=== PATIENT | male | born 1940 | race Caucasian/White ===

== ENCOUNTER 2017-08-13 08:27 | Emergency (ER) | payer MEDICARE ==
[~2017-08-13] VITALS: Ht 181.6 cm; Wt 109.3 kg
--- NOTE | 2017-08-13 09:05 | Emergency Room Report ---
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 N Clinical Suspician of Infection? N Mental Status: 1 - Regular (Normal Baseline) Sepsis Risk:Low Sepsis Risk Have you (or family members/close friends) recently traveled outside the [place]? N If Yes, where/when: Have you had exposure to infectious disease within the past month? TB? Other? Specify: Comment Patient fell while walking his dog 2 days ago and landed on his back. He complains of pain in his upper lumbar area of his lower back. Denies bowel or bladder symptoms since the injury, denies numbness or weakness of the legs. He had pain going around his ribs on both sides yesterday, but this is improved today. ALLERGIES Coded Allergies: No Known Allergies (08/13/17) History Medical History General More? No Immunization Hx Ped.Immunizations UTD Yes DT/Tetanus 5-10 Years Ago Surgical Hx Previous Surgery?Y ELBOWS BILAT Social History Smoking Hx Smoker: Never Smoker Tobacco: No Type N/A Are you/the child exposed to second-hand smoke: No Alcohol Alcohol: Yes Review of Systems All Other Systems Reviewed and Negative Gastrointestinal denies vomiting Musculoskeletal back pain, denies neck pain Psychiatric/Neurological denies headache, denies numbness, denies weakness Physical Exam Vital Signs Vital Signs Date Time Temp Pulse Resp B/P Pulse O2 O2 Flow FiO2 Ox Delivery Rate 08/13 0931 18 08/13 929 84 18 138/85 99 08/13 0913 88 18 142/77 94 08/13 0834 98.1 104 18 135/90 94 General Appearance no apparent distress, sitting in a wheelchair Eye Exam - bilateral eye normal exam, bilateral eye PERRL, bilateral eye EOMI Ear, Nose, Throat hearing grossly normal, normal ENT inspection Neck normal inspection, non-tender, supple, full range of motion Respiratory Status Yes: trachea midline, chest symmetrical, non tender chest. No: respiratory distress. Lung Sounds bilateral: normal breath sounds, lungs clear. Cardiovascular normal exam, regular rate/rhythm, no peripheral edema, no gallop, no JVD, no murmur, no rub, normal peripheral pulses Peripheral Pulses Pulses normal Yes Gastrointestinal normal bowel sounds, normal exam, non tender, soft, no organomegaly Back vertebral tenderness (upper lumbar) Extremities non-tender, normal range of motion, normal inspection Neurologic alert, normal exam, no motor/sensory deficits, oriented x 3 Mental status normal mood/affect Skin intact, normal color, warm/dry Medical Decision Making LABS/Meds/Orders Pt receiving controlled substance in ED? Yes Reece was queried for this patient? No Reason not queried - emergent pt cond=no time Results/Orders Current Medication Orders Sig/Meghana Start time Last Medication Dose Route Stop Time Status Admin Hydrocodone Bitart/ 1 TAB ONCE ONE 08/13 930 DC 08/13 Acetaminophen PO 08/13 Hydrocodone Bitart/ 0 .STK-MED ONE 08/13 927 DC Acetaminophen PO XRAY/CT/US XRAY/CT/US XRAY chest, pelvis, L-spine Comment X-rays interpreted by Jl Villalba M.D.: Lumbar spine: Degenerative changes with spurs. Some loss of height of L2 and L3 vertebral body since CT scan of abdomen and pelvis in 2014. Pelvis: Degenerative changes, no fracture seen. Chest: Blunting of the posterior costophrenic angles on lateral view. No rib fractures or pneumothorax seen. Departure Departure Disposition DC Home or Self Care(routine) Clinical Impression Primary Impression: Compression fracture of L3 lumbar vertebra Secondary Impressions: Compression fracture of L2 lumbar vertebra Qualifiers: Encounter type: initial encounter Fracture type: closed Qualified Code: S32.020A - Wedge compression fracture of second lumbar vertebra, initial encounter for closed fracture Condition STABLE Referrals José Luis Mcclellan MD (PCP) Issa Rodriguez MD call for appointment Patient Instructions DI for Vertebral Fracture Additional Instructions Follow-up with orthopedics. [place] for pain. Additional instructions for BACK PAIN: See your physician as soon as possible for further evaluation. Return immediately if back pain becomes intolerable, or if numbness or weakness of your legs, loss of control of your bowels or bladder. Prescriptions Current Visit Scripts HYDROCODONE/ACETAMINOPHEN ([place] 5-325 Tablet) 1 TAB PO Q6HP PRN pain #20 TAB ED Critical Care Critical Care No at 1520 Critical Care No
[2017-08-13] MEDS ORDERED: NORCO 325 MG-51 TAB PO (09:24)
[2017-08-13 09:29] VITALS: BP 138/85
--- NOTE | 2017-08-13 14:48 | RADIOLOGY REPORT PS360 ---
CHEST(2 VIEWS-NOT PORTABLE) HISTORY: Chest pain following injury FALL ON FRIDAY ORDERING PHYSICIAN: Jl Villalba MD PATIENT AGE: 77 years COMPARISON: None available FINDINGS: The cardiomediastinal silhouette and pulmonary vascularity are within normal limits. The lungs are clear without infiltrates, suspicious nodules, or pleural effusions. No acute bony abnormalities. IMPRESSION: Negative chest, no acute finding
--- NOTE | 2017-08-13 14:48 | RADIOLOGY REPORT PS360 ---
PELVIS AP ONLY HISTORY: Pain following injury FALL ON FRIDAY ORDERING PHYSICIAN: Jl Villalba MD PATIENT AGE: 77 years COMPARISON: None FINDINGS: No obvious fracture or dislocation. Osteoarthritic changes are present involving the right hip with osteophyte formation of the femoral head. No lytic or blastic change. IMPRESSION: No acute fracture. Osteoarthritic changes of the right hip
--- NOTE | 2017-08-13 14:48 | RADIOLOGY REPORT PS360 ---
EXAM: LUMBAR SPINE 5 VIEWS HISTORY: Back pain following injury FALL ON FRIDAY ORDERING PHYSICIAN: Jl Villalba MD PATIENT AGE: 77 years COMPARISON: CT scan of 11/08/2015 FINDINGS: There is normal alignment. Multilevel endplate osteophytes are present. There is slight decrease in height of the L5 and L2 vertebral bodies compared to the previous CT scan consistent with mild compression changes age-indeterminate. No obvious retropulsed fragments. Mild facet arthritic changes are present at L4-L5 and L5-S1. No lytic or blastic change. IMPRESSION: 1. Lumbar spondylosis. 2. Mild compression changes involving L2 and L5 which have developed since 11/08/2015 and may be better evaluated with MRI to determine if the changes are acute.
== END 2017-08-13 09:32 | disposition home or self-care (01) ==
LOC: ER 08:27
DX: S32.020A Wedge compression fracture of second lumbar vertebra, initial encounter for closed fracture (principal); W01.0XXA Fall on same level from slipping, tripping and stumbling without subsequent striking against object, initial encounter; Y93.89 Activity, other specified; Y92.9 Unspecified place or not applicable

== ENCOUNTER 2017-09-11 19:57 | Inpatient (IN) | payer MEDICARE ==
[~2017-09-11] VITALS: Ht 182.9 cm; Wt 108.9 kg
[~2017-09-11 19:57] MED LIST: NORCO 325 MG-51 TAB PO
[2017-09-11 20:04] VITALS: BP 142/82
[2017-09-11 20:36] LABS: LYMPH # 1.6 K/mm3 (0.7-4.5); LYMPH % 14.4 % (10-50)
--- NOTE | 2017-09-11 20:39 | Emergency Room Report ---
History of Present Illness Time Seen by 2009 Presenting Problem in Triage Pt arrived:Wheelchair Presenting Problem:N/V, DIARRHEA, BACK PAIN, STATES HE BROKE HIS BACK 4 WEEKS AGO. 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 N Clinical Suspician of Infection? N Mental Status: 1 - Regular (Normal Baseline) Sepsis Risk:Low Sepsis Risk Have you (or family members/close friends) recently traveled outside the [place]? N If Yes, where/when: Have you had exposure to infectious disease within the past month? N TB? Other? Specify: Source patient, RN notes reviewed, family, old records Exam Limitations no limitations Comment wm who has recent lumbar fx and now with vomiting and dec po intake over the last day with some element of abd pain- no recent etoh use - Cardiac Chest Pain Chest pain indicative of cardiac No Timing/Duration this evening Severity moderate ALLERGIES Coded Allergies: No Known Allergies (08/13/17) Home Medications Active Scripts HYDROCODONE/ACETAMINOPHEN ([place] 5-325 Tablet) 1 TAB PO Q6HP PRN pain #20 TAB Prov: 08/13/17 History Medical History General CAD? No Angina: No LA: No Hypertension? No Hyperlipidemia? No CHF? No DVT? No PE? No COPD? No Asthma? No Anemia? No GERD? No Gastric ulcers? No GI Bleed? No Hernia? No Thyroid Problems? No CVA? No Seizures? No Diabetes? No End Stage Renal Disease? No UTI? No Stones? No GB Disease: No Arthritis? No Migraines? No Cataracts? No Glaucoma? No More? No Immunization Hx DT/Tetanus 5-10 Years Ago Surgical Hx Previous Surgery?Y ELBOWS BILAT Social History Smoking Hx Smoker: Never Smoker Tobacco: No Type Cigarettes Alcohol Alcohol: Yes Drugs none Review of Systems All Other Systems Reviewed and Negative Constitutional see HPI, denies fever, weakness Eyes denies drainage ENT denies: ear discharge, epistaxis, throat pain. Respiratory denies cough, denies shortness of breath, denies wheezing Cardiovascular denies chest pain, denies palpitations, denies syncope Gastrointestinal see HPI, abdominal pain, denies diarrhea, nausea, vomiting Genitourinary denies: dysuria, hematuria. Musculoskeletal denies back pain, denies joint pain, denies joint swelling, denies neck pain Skin denies rash Psychiatric/Neurological see HPI, denies seizure, weakness Physical Exam Vital Signs Vital Signs Date Time Temp Pulse Resp B/P Pulse O2 O2 Flow FiO2 Ox Delivery Rate 09/11 2157 101 20 178/79 97 09/11 2042 102 12 168/87 96 09/11 2004 98.8 110 18 142/82 96 - WBC >12,000 or <4,000 or 10% bands? 2 or more SIRS Criteria Met? B/P:178/ MAP:102 Creatinine >2.0? UA output<0.5ml/kg/hr for 2 hrs? Platelet count >100,000? Lactate >2.0mmol/1? INR >1.2 or PTT > than 60 sec? Evidence of Organ Dysfunction? Provider documented clinical suspician of infection? N Sepsis Criteria Count: 1 Sepsis Risk: Low Sepsis Risk General Appearance no apparent distress Eye Exam - bilateral eye PERRL, bilateral eye EOMI, bilateral eye icterus Ear, Nose, Throat normal ENT inspection Neck supple Respiratory Status No: respiratory distress. Lung Sounds bilateral: lungs clear. Cardiovascular regular rate/rhythm, systolic murmur, gallop/S4 Peripheral Pulses Pulses normal Yes Gastrointestinal soft Back decreased range of motion Extremities no pedal edema, pedal edema Strength 3 Lower Ext (L), 3 Lower Ext (R), 4 Upper Ext (L), 4 Upper Ext (R) Neurologic alert, vp compliance II-XII nml as tested Reflexes Reflexes normal No Mental status normal mood/affect Skin intact Medical Decision Making LABS/Meds/Orders Pt receiving controlled substance in ED? No Results/Orders Laboratory Tests 09/11/172219: Ammonia 6 L 09/11/172119: Creatine Kinase 773 H, CK-MB (CK-2) Rel Index 1.6, CK and CKMB Interp 12.3 *H, Troponin I 0.02 09/11/172119: Amylase 24 L, Lipase 75 09/11/172119: Sodium 110 *L, Potassium 4.1, Chloride 79 L, Carbon Dioxide 27, BUN 9, Creatinine 0.9, Estimated Creat Clear 108, Estimated GFR (MDRD) 82, Glucose 83, Calcium 8.6, Total Bilirubin 7.0 H, AST 110 H, ALT 34, Alkaline Phosphatase 294 H, Total Protein 6.7, Albumin 2.7 L, Globulin 4.0 H, Albumin/Globulin Ratio 0.7 L, PT 18.7 H, INR 1.72 H 09/11/172024: WBC 11.0 H, RBC 3.58 L, Hgb 11.8 L, Hct 32.1 L, MCV 89.6, RDW 13.7, Plt Count 227, MPV 7.5, Gran % 74.8, Gran # 8.3 H, Lymphocytes % 14.4, Monocytes % 8.7, Eosinophils % 1.9, Basophils % 0.3, Lymphocytes # 1.6, Monocytes # 1.0, Eosinophils # 0.2, Basophils # 0.0, PUBS MCHC 36.4 H, MCH 32.6 H Current Medication Orders Sig/Meghana Start time Last Medication Dose Route Stop Time Status Admin Sodium Chloride 1,000 ML .Q1H1M 09/11 2030 DC 09/11 IV 09/11 Sodium Chloride 10 ML PRN PRN 09/11 2030 AC IV 09/12 2016 Sodium Chloride 10 ML PRN PRN 09/11 2015 AC IV 09/12 2015 Orders Procedure Date/time Status DIET-NOTHING BY MOUTH 09/12 B Active Decision to admit 09/11 2310 Active PROTHROMBIN TIME 09/11 2213 Complete AMMONIA 09/11 2213 Complete CHEST-PORTABLE 09/[address] ABD & PELVIS W/O CONTRAST 09/[address] SCAN REQ 09/11 2039 Complete CARDIAC ENZYMES 09/11 2038 Complete LIPASE 09/11 2018 Complete AMYLASE 09/11 2018 Complete 12 LEAD EKG-BESSON (INITIAL) 09/11 2016 Active ELECTROCARDIOGRAM REQUEST 09/11 2016 Active IV SALINE LOCK 09/11 2016 Active URINALYSIS/COMPLETE 09/11 2016 Active CBC WITH AUTO DIFF 09/11 2016 Complete CHEM 12 PROFILE 09/11 2016 Complete CM/EKG CM/note taker Rhythm Sinus Tachycardia EKG no EKG for comparison, RBBB XRAY/CT/US XRAY/CT/US 1 XRAY chest XR interpretation by reviewed by me Xray Results normal/NAD XRAY/CT/US 2 CT abdomen, pelvis CT interpretation by discussed w/radiologist Time results known: 2324 CT Results abnormal (see report) Departure Departure Time of Disposition 2314 Disposition Still a Patient Clinical Impression Primary Impression: Hyponatremia Secondary Impressions: Abnormal LFTs (liver function tests) Lumbar vertebral fracture Qualifiers: Encounter type: subsequent encounter Lumbar vertebra fracture level : L2 Fracture type: closed Fracture morphology: wedge compression Fracture healing: with routine healing Qualified Code: S32.020D - Wedge compression fracture of second lumbar vertebra, subsequent encounter for fracture with routine healing RBBB Condition STABLE Referrals Eleuterio SANABRIA,José Luis (Family) discussed with dr james ED Critical Care Critical Care Yes Time spent 30-74 min Vital system(s) involved: Metabolic Failure I was present at bedside for Coordinating pt's care, Interpreting EKGs/Strips , Reviewing lab results, Discussing pt condition, Examining radiographs at 1813
[2017-09-11 20:55] LABS: HEMOGLOBIN 11.8 g/dL (14.1-18.0)
[2017-09-11 23:37] LABS: URINE BLOOD TRACE-LYSED (NEG)
[2017-09-11 23:38] LABS: URINE BILIRUBIN - DIPSTICK NEGATIVE (NEG)
[2017-09-12] VITALS (12 sets, daily range): BP systolic 134–162; BP diastolic 68–99
--- NOTE | 2017-09-12 04:21 | RADIOLOGY REPORT PS360 ---
CHEST-PORTABLE HISTORY: Shortness of breath sob ORDERING PHYSICIAN: Florencio Rashid MD PATIENT AGE: 77 years COMPARISON: 08/13/2017 FINDINGS: The cardiomediastinal silhouette and pulmonary vascularity are within normal limits. The lungs are clear without infiltrates, suspicious nodules, or pleural effusions. No acute bony abnormalities. IMPRESSION: Negative chest, no acute finding
--- NOTE | 2017-09-12 04:43 | RADIOLOGY REPORT PS360 ---
CT ABD PELVIS W/O CONTRAST CLINICAL INDICATION: Abdominal pain with nausea and vomiting. ABD PAIN ORDERING PHYSICIAN: Florencio Rashid MD PATIENT AGE: 77 years COMPARISON: 11/08/2015 TECHNIQUE: Axial images obtained with sagittal and coronal reformats. PROCEDURE: Oral Contrast: None IV Contrast: None . FINDINGS: Minimal atelectatic changes are present in the lung bases. The liver is shrunken and has an irregular appearance consistent with cirrhosis. There is generalized ascites. Prominent varices are present in the upper abdomen. The gallbladder is distended. No radio opaque stones are evident. Normal spleen size. No obvious adrenal mass. No renal or ureteral calculi or hydronephrosis. No pelvic mass. No evidence of diverticulitis or appendicitis. There is mild haziness of the peritoneal fat along with small amount fluid in the paracolic gutters in keeping with portal hypertension. Wedge compression changes are present involving L2 and L5 consistent with mild acute compression fractures. There is loss of height of L2 centrally by approximately 50% loss of height of L5 centrally also by approximately 50%. No obvious retropulsion. These findings appear somewhat progressed when compared to 08/13/2017 lumbar spine. IMPRESSION: 1. Cirrhosis with portal venous hypertension and a small amount of ascites. 2. Distended gallbladder. 3. Acute compression fractures of L2 and L5 which appear somewhat progressed when compared to 08/13/2017
[2017-09-12 06:45] LABS: HEMOGLOBIN 11.5 g/dL (14.1-18.0); LYMPH # 1.7 K/mm3 (0.7-4.5); LYMPH % 16.9 % (10-50)
--- NOTE | 2017-09-12 07:39 | PHARMACY CLINIC NOTE ---
Patient Demographics Patient Demographics Admission date: 09/12/17 Date: 09/12/17 Time: 0738 Allergies Coded Allergies: No Known Allergies (08/13/17) HEIGHT- FT: 5 IN: 12.00 K.864 VTE General Information Labs: Laboratory Tests 09/12 Coagulation PT (9.4 - 11.8 SECONDS) 18.7 H INR (0.9 - 1.1) 1.72 H Hematology Hgb (14.1 - 18.0 g/dL) 11.5 L 11.8 L Hct (42.0 - 52.0 %) 31.6 L 32.1 L Plt Count (142 - 424 K/mm3) 206 227 Disclaimer The following section includes nursing documentation that has been pulled in for pharmacy review. Patient's VTE score: 2 Patient's VTE Risk: VERY LOW RISK Clinical trial participant? No VTE prophylaxis [id number] VTE prophylaxis ordered? Yes Type of prophylaxis/treatment: MARIKA at 0738
[2017-09-12] MEDS ORDERED: MICRO-K 10 MEQ10 MEQ PO (08:20)
[2017-09-12] MEDS ORDERED: OXYBUTYNIN5 MG PO (08:21)
[2017-09-12] MEDS ORDERED: LISINOPRIL-HYDR1 TA1 PO (08:22)
[2017-09-12] MEDS ORDERED: VITAMIN A10000 UNI2 PO (08:22)
--- NOTE | 2017-09-12 08:27 | HISTORY AND PHYSICAL REPORT ---
History and Physical ([facility]) Date of admission: 09/12/17 Chief complaint: AMS History: History of Present Illness: Mr. Yo is a 77-year-old male with a recent history of a back fracture. He had been on Lortab but had stopped this due to the side effects of vomiting and constipation. According to his son, his has been giving him pain medicine every 6 hours the past week because she thought it was helping him. He began vomiting again has not had a bowel movement in 10 days. His son states he has had altered mental status for the past few days and was talking out of his head last night. He was able to walk into the emergency room but was very confused. He has not vomited since he has been admitted. He still has not had a bowel movement. His sodium was 110 after evaluation and his ammonia level was low. His liver function tests were elevated but he has a history of hepatitis in his youth. He was admitted for further evaluation and treatment. Past Medical History: Medical History: CAD? No Angina: No MS: No Hypertension? Yes Hyperlipidemia? No CHF? No DVT? No PE? No COPD? No Asthma? No Anemia? No GERD? No Gastric ulcers? No GI Bleed? No Hernia? No Thyroid Problems? No CVA? No Seizures? No Diabetes? No UTI? No Stones? No GB Disease: No Hepatitis? Yes Arthritis? No Migraines? No Cataracts? No Glaucoma? No More? No Surgical history: Previous Surgery?Y ELBOWS BILAT REPAIR OF RIGHT OLECRANON BURSA WISDOM TEETH Medications: Active Scripts HYDROCODONE/ACETAMINOPHEN ([place] 5-325 Tablet) 1 TAB PO Q6HP PRN pain #20 TAB Prov: 08/13/17 Reported Medications POTASSIUM CHL (Potassium Chloride) 10 MEQ PO DAILY OXYBUTYNIN CHLORIDE (Oxybutynin 5MG Tab) 5 MG PO BID LISINOPRIL/HYDROCHLOROTHIAZIDE (Lisinopril-Hctz 20-12.5 MG Tab) 1 TAB PO DAILY Vitamin A Acetate (Vitamin A) 10,000 UNIT PO DAILY Allergies: Coded Allergies: Sulfa (Sulfonamide Antibiotics) (09/12/17) Family History: Family history: Postive for: cancer. Negative for: CAD, DM, HTN, hyperlipidemia, stroke. Social History: Smoking Hx Tobacco: No Smoker: Never Smoker Type: Cigarettes Packs/day: N/A Are you exposed to second hand No Alcohol: Alcohol: Yes How much do you drink 14-15 BEERS PER DAYS For how long Longer Than 5 Years When was your last drink Greater Than 72 Hours Ago Comment LAST DRINK WAS 3 WEEKS AGO. Hx of Drug Use: Drug Use? No Review of Systems: Constitutional Positive for: fatigue, lethargy, malaise, weak. ENT No: nasal congestion, sore throat. Cardiovascular No: chest pain, edema, palpitations. Respiratory Positive for: shortness of air. No: productive cough (sputum), wheezing. GI Positive for: constipation, nausea, vomitting. No: abdominal pain, diarrhea. (male) No: frequency, hematuria. Neurological Positive for: confusion, dizziness, headache, weakness. No: numbness, seizure, syncope. Musculoskeletal Positive for: lumbar pain. No: extremity pain, myalgias. Physical Exam: Vital signs: 1ST Vital Signs Result Date Time Pulse Ox 96 09/11 2004 B/P 142/82 09/11 2004 Temp 98.8 09/11 2004 Pulse 110 09/11 2004 Resp 18 09/11 2004 O2 Delivery ROOM AIR 09/12 0020 Exam: General appearance: alert, awake, no acute distress, still groggy but able to answer questions Eyes: EOM's w/normal ROM, PERRLA ENT: nose normal, pharynx normal, dry mucous membranes Neck: non-tender, full range of motion, supple Cardiovascular: regular rate & rhythm Respiratory: clear to auscultation ABD: non-distended, normal bowel sounds, no rebound, soft, no tenderness, no guarding Extremities: no peripheral edema Musculoskeletal: equal muscle strength, motor intact, sensation intact Skin: normal color 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, normal mood/affect, speech clear, able to answer questions today Lab data: Labs: Laboratory Tests 09/12/17 0620: Sodium 112 *L, Potassium 4.4, Chloride 82 L, Carbon Dioxide 27, BUN 10, Creatinine 0.8, Estimated Creat Clear 123, Estimated GFR (MDRD) 94, Glucose 67 L, Calcium 8.4 L, WBC 10.2, RBC 3.53 L, Hgb 11.5 L, Hct 31.6 L, MCV 89.3, RDW 13.7, Plt Count 206, MPV 7.0 L, Gran % 69.5, Gran # 7.1, Lymphocytes % 16.9 , Monocytes % 10.4 H, Eosinophils % 2.9, Basophils % 0.4, Lymphocytes # 1.7, Monocytes # 1.1 H, Eosinophils # 0.3, Basophils # 0.0, PUBS MCHC 36.3 H, MCH 32.4 H 09/11/172330: Urine Color YELLOW, Urine Appearance CLEAR, Urine pH 5.5, Ur Specific [place] >= 1.030, Urine Protein 1+ H, Urine Ketones 1+ H, Urine Blood TRACE-LYSED, Urine Nitrate POSITIVE H, Urine Bilirubin NEGATIVE, Urine Urobilinogen 2.0, Ur Leukocyte Esterase NEGATIVE, Urine RBC 3-5, Urine WBC 3-5, Urine Bacteria 1+, Hyaline Casts 3-5, Urine Mucus 1+, Urine Glucose NEGATIVE 09/11/172219: Ammonia 6 L 09/11/172119: Creatine Kinase 773 H, CK-MB (CK-2) Rel Index 1.6, CK and CKMB Interp 12.3 *H, Troponin I 0.02 09/11/172119: Amylase 24 L, Lipase 75 09/11/172119: Sodium 110 *L, Potassium 4.1, Chloride 79 L, Carbon Dioxide 27, BUN 9, Creatinine 0.9, Estimated Creat Clear 108, Estimated GFR (MDRD) 82, Glucose 83, Calcium 8.6, Total Bilirubin 7.0 H, AST 110 H, ALT 34, Alkaline Phosphatase 294 H, Total Protein 6.7, Albumin 2.7 L, Globulin 4.0 H, Albumin/Globulin Ratio 0.7 L, PT 18.7 H, INR 1.72 H 09/11/172024: WBC 11.0 H, RBC 3.58 L, Hgb 11.8 L, Hct 32.1 L, MCV 89.6, RDW 13.7, Plt Count 227, MPV 7.5, Gran % 74.8, Gran # 8.3 H, Lymphocytes % 14.4, Monocytes % 8.7, Eosinophils % 1.9, Basophils % 0.3, Lymphocytes # 1.6, Monocytes # 1.0, Eosinophils # 0.2, Basophils # 0.0, PUBS MCHC 36.4 H, MCH 32.6 H [facility] 09/11 2331 URINE CC: Urine Culture - RECD Radiology results: Results: CT abd/pelvis 1. Cirrhosis with portal venous hypertension and a small amount of ascites. 2. Distended gallbladder. 3. Acute compression fractures of L2 and L5 which appear somewhat progressed when compared to 08/13/2017 CXR - normal Diagnosis(es): 1. Urinary tract infection Status: Acute 2. Hyponatremia Status: Acute 3. Abnormal CT scan, gallbladder Status: Acute 4. Constipation Status: Acute 5. Compression fx, lumbar spine 6. 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 Hypertension Plan: Will continue IVF's, start on rocephin for UTI, get a RUQ U/S d/t distended GB on CT, and will start on something for constipation. Will recheck labs tomorrow. (Nissa Ardon) Diagnosis(es): 1. Urinary tract infection Status: Acute 2. Hyponatremia Status: Acute 3. Abnormal CT scan, gallbladder Status: Acute 4. Constipation Status: Acute 5. Compression fx, lumbar spine 6. 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 Hypertension Plan: Patient seen and agree with above note. (José Luis Mcclellan MD) at 0844 at 0874
--- NOTE | 2017-09-12 14:40 | RADIOLOGY REPORT PS360 ---
US RUQ-(ABD LTD)1ORGAN/QUAD/FU HISTORY: Vomiting, distended gallbladder, abdominal pain with nausea and vomiting abnl CT, distended gallbladder ORDERING PHYSICIAN: José Luis Mcclellan MD PATIENT AGE: 77 years COMPARISON: None FINDINGS: PANCREAS:Poorly demonstrated LIVER:Small with irregular margin, cirrhotic appearance. No intrahepatic biliary dilatation or focal mass RIGHT KIDNEY:Unremarkable. Normal size and echogenicity. No hydronephrosis GALLBLADDER:Gallbladder distended measuring up to 9 x 4.4 cm. Sludge is present within the gallbladder. No shadowing stones, pericholecystic fluid, or biliary dilatation. Common bile duct is 3 mm There is perihepatic ascites. IMPRESSION: 1. Distended gallbladder with sludge. No obvious stones 2. Cirrhosis with ascites
[2017-09-13 04:10] VITALS: BP 149/99
[2017-09-13 06:21] LABS: HEMOGLOBIN 10.8 g/dL (14.1-18.0); LYMPH # 1.4 K/mm3 (0.7-4.5); LYMPH % 19.9 % (10-50)
[2017-09-13 07:34] VITALS: BP 143/92
--- NOTE | 2017-09-13 08:16 | ACUTE CARE PROGRESS NOTE (QUA) ---
Progress Notes Subjective Date 09/13/17 Time 0811 Note Patient with no new complaints today, feels better today, still has no appetite, ate only a few bites of his breakfast. Objective Findings Laboratory Tests 09/13/17 0605: Sodium 118 L, Potassium 4.1, Chloride 88 L, Carbon Dioxide 26, BUN 11, Creatinine 0.8, Estimated Creat Clear 123, Estimated GFR (MDRD) 94, Glucose 109 H, Calcium 8.3 L, WBC 7.1, RBC 3.38 L, Hgb 10.8 L, Hct 31.1 L, MCV 91.8, RDW 14.0, Plt Count 184, MPV 7.3 L, Gran % 61.3, Gran # 4.3, Lymphocytes % 19.9, Monocytes % 12.0 H, Eosinophils % 6.3, Basophils % 0.5, Lymphocytes # 1.4, Monocytes # 0.8, Eosinophils # 0.4, Basophils # 0.0, PUBS MCHC 34.6, MCH 31.8 H Vital Signs Date Time Temp Pulse Resp B/P Pulse O2 O2 Flow FiO2 Ox Delivery Rate 09/13 0734 97.4 95 20 143/92 96 ROOM AIR 09/13 0410 97.3 93 20 149/99 96 ROOM AIR 09/12 2005 97.3 93 20 149/99 96 09/12 2000 97.6 99 20 151/73 09/12 1934 97.6 99 20 151/73 96 ROOM AIR 09/12 1600 98.0 99 20 162/81 09/12 1538 98.0 99 20 162/81 98 ROOM AIR 09/12 1200 98.2 102 18 150/76 09/12 0934 98.1 108 20 143/79 97 I&O Past 24 Hrs-ending at 0700 09/13 0700 Intake Total 3181 Output Total 200 Balance 2981 Last VS-Temp:97.4 B/P:143/92 Pulse:95 Resp:20 SaO2:96 ROOM AIR Last weight lbs:240 oz:0 K.864 Method:Bed Scales Exam General appearance: alert, awake, no acute distress Cardiovascular: regular rate & rhythm Respiratory: clear to auscultation Assessment/Plan Problem List 1. Urinary tract infection Status: Acute 2. Hyponatremia Status: Acute 3. Abnormal CT scan, gallbladder Status: Acute 4. Constipation Status: Acute 5. Compression fx, lumbar spine 6. Abnormal LFTs (liver function tests) Status: Chronic 7. 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 Hypertension Status: Chronic 9. Anemia Status: Acute This inpt stay is expected to cross 2 MNs from start of care Yes Comments: Patient has improved, will discontinue 3% saline infusion, otherwise will continue current treatment. at 0815
[2017-09-13 10:41] VITALS: BP 143/92
[2017-09-13 15:52] VITALS: BP 154/89
--- OUTSIDE RECORDS SUMMARY | 2017-09-13 18:02 | External Medical Summary Rpt ---
Author Author [employer] Bhatia, [employer] Organization [employer] Address Unknown Phone Unavailable Results Comprehensive metabolic 2000 panel in Serum or Plasma Observa Value Referen Units Interpr Notes Date tion ce etation Range Albumin/G 1.1 - 1.8 No Low No Jul 28 lobulin informati informati 2017 [Mass on in on in 10:54 AM ratio] in source source Serum or data data Plasma Albumin 3.4 - 5.0 gm/dL Low No Jul 28 [Mass/vol informati 2016 ume] in on in 10:54 AM Serum or source Plasma data Alkaline 46 - 116 U/L High No Jul 28 phosphata informati 2017 se on in 10:54 AM [Enzymati source c data activity/ volume] in Serum or Plasma Bilirubin 0.2 - 1.0 mg/dL High No Jul 28 .total informati 2016 [Mass/vol on in 10:54 AM ume] in source Serum or data Plasma Urea 7 - 18 mg/dL Normal No Jul 28 nitrogen informati 2016 [Mass/vol on in 10:54 AM ume] in source Serum or data Plasma Calcium 8.5 - mg/dL Normal No Jul 28 [Mass/vol 10.1 informati 2016 ume] in on in 10:54 AM Serum or source Plasma data Chloride 98 - 107 mmoL/L Low No Jul 28 [Moles/vo informati 2016 lume] in on in 10:54 AM Serum or source Plasma data Carbon 21.0 - mmoL/L Normal No Jul 28 dioxide, 32.0 informati 2016 total on in 10:54 AM [Moles/vo source lume] in data Serum or Plasma Creatinin 0.70 - mg/dL Normal No Jul 28 e 1.30 informati 2016 [Mass/vol on in 10:54 AM ume] in source Serum or data Plasma Estimated >60 ML/MIN No REFERENCE Jul 28 informati RANGE: 2017 glomerula on in >60 10:54 AM r source ML/MIN/1. filtratio data 73 SQUARE n rate METERSIf (GF this patient is -A merican, then multiply theresult by 1.210. Globulin 1.3 - 3.2 gm/dL High No Jul 28 [Mass/vol informati 2016 ume] in on in 10:54 AM Serum source data Glucose 74 - 106 mg/dL Normal No Jul 28 [Mass/vol informati 2016 ume] in on in 10:54 AM Serum or source Plasma data Potassium 3.5 - 5.1 mmoL/L Normal No Jul 28 inform2016 [Moles/vo on in 10:54 AM lume] in source Serum or data Plasma Sodium 136 - 145 mmoL/L Low No Jul 28 [Moles/vo informati 2016 lume] in on in 10:54 AM Serum or source Plasma data Aspartate 15 - 37 U/L High No Jul 282016 aminotran on in 10:54 AM sferase source [Enzymati data c activity/ volume] in Serum or Plasma Alanine 12 - 78 U/L Normal No Jul 28 aminotran 2016 sferase on in 10:54 AM [Enzymati source c data activity/ volume] in Serum or Plasma Protein 6.4 - 8.2 gm/dL Normal No Jul 28 [Mass/vol informati 2016 ume] in on in 10:54 AM Serum or source Plasma data Lipid 1996 panel in Serum or Plasma Observa Value Referen Units Interpr Notes Date tion ce etation Range Cholester < 200 mg/dL High No Jul 28 ol 2016 [Moles/vo on in 10:54 AM lume] in source Unspecifi data ed specimen Cholester 40 - 60 MG/DL High No Jul 28 ol in HDL 2016 on in 10:54 AM [Mass/vol source ume] in data Serum or Plasma Cholester 0 - 130 mg/dL Normal No Jul 28 ol in LDL 2016 on in 10:54 AM [Mass/vol source ume] in data Serum or Plasma by calculati on Triglycer 30 - 200 mg/dL Normal No Jul 28 ashlyn 2016 [Moles/vo on in 10:54 AM lume] in source Serum or data Plasma Cholester 0 - 40 No Normal No Jul 28 ol in informati inform2016 VLDL on in on in 10:54 AM [Mass/vol source source ume] in data data Serum or Plasma Prostate specific Ag [Mass/volume] in Cerebral spinal fluid Observa Value Referen Units Interpr Notes Date tion ce etation Range Prostate 0.0 - 4.0 ng/mL Normal No Jul 28 specific inform2016 Ag on in 10:54 AM [Mass/vol source ume] in data Cerebral spinal fluid CBC W Auto Differential panel in Blood Observa Value Referen Units Interpr Notes Date tion ce etation Range Basophils 0 - 0.2 K/MM3 Normal No Jul 282016 [#/volume on in 10:54 AM ] in source Blood by data Automated count Basophils 0.1 - 2.0 % Normal No Jul 28 /100 inform2016 leukocyte on in 10:54 AM s in source Blood by data Automated count Eosinophi 0.0 - 0.4 K/mm3 Normal No Jul 28 ls 2016 [#/volume on in 10:54 AM ] in source Blood by data Automated count Eosinophi 0.1 - % Normal No Jul 28 ls/100 12.0 inform2016 leukocyte on in 10:54 AM s in source Blood by data Automated count Granulocy 1.3 - 8.0 K/mm3 Normal No Jul 28 soila 2016 [#/volume on in 10:54 AM ] in source Blood by data Automated count Granulocy 37.0 - % Normal No Jul 28 soila/100 80.0 2016 leukocyte on in 10:54 AM s in source Blood by data Automated count Hematocri 42.0 - % Normal No Jul 28 t [Volume 52.0 ati 2016 on in 10:54 AM Fraction] source of Blood data Hemoglobi 14.1 - g/dL Normal No Jul 28 n 18.0 2016 [Mass/vol on in 10:54 AM ume] in source Blood data Lymphocyt 0.7 - 4.5 K/mm3 Normal No Jul 28 es 2016 [#/volume on in 10:54 AM ] in source Unspecifi data ed specimen by Automated count Lymphocyt 10 - 50 % Normal No Jul 28 es 2016 [#/volume on in 10:54 AM ] in source Unspecifi data ed specimen by Automated count Erythrocy 27 - 31.2 pg High No Jul 28 te mean 2016 corpuscul on in 10:54 AM ar source hemoglobi data n [Entitic mass] Erythrocy 31.8 - g/dl Normal No Jul 28 te mean 35.4 inform2016 corpuscul on in 10:54 AM ar source hemoglobi data n concentra tion [Mass/vol ume] by Automated count Erythrocy 82.2 - fl Normal No Jul 28 te mean 97.8 inform2016 corpuscul on in 10:54 AM ar volume source [Entitic data volume] by Automated count Monocytes 0.1 - 1.0 K/mm3 Normal No Jul 28 inform2016 [#/volume on in 10:54 AM ] in source Blood by data Automated count Monocytes 1.7 - 9.3 % Normal No Jul 28 /100 inform2016 leukocyte on in 10:54 AM s in source Blood by data Automated count Platelet 7.4 - fl Low No Jul 28 mean 10.4 informati 2016 volume on in 10:54 AM [Entitic source volume] data in Blood by Automated count Platelets 142 - 424 K/mm3 Normal No Jul 28 inform2016 [#/volume on in 10:54 AM ] in source Blood data Erythrocy 4.6 - 6.2 M/mm3 Normal No Jul 28 soila inform2016 [#/volume on in 10:54 AM ] in source Amniotic data fluid Erythrocy 11.5 - % Normal No Jul 28 te 17.5 inform2016 distribut on in 10:54 AM ion width source [Entitic data volume] by Automated count Leukocyte 4.8 - K/MM3 Normal No Jul 28 s 10.8 informati 2016 [#/volume on in 10:54 AM ] in source Blood data Urea nitrogen [Mass/volume] in Serum or Plasma Observa Value Referen Units Interpr Notes Date tion ce etation Range Urea 7 - 18 mg/dL Low No Jun 25 nitrogen informati 2016 8:41 [Mass/vol on in AM ume] in source Serum or data Plasma CREATININE Observa Value Referen Units Interpr Notes Date tion ce etation Range Creatinin 0.70 - mg/dL Normal No Jun 25 e 1.30 informati 2016 8:41 [Mass/vol on in AM ume] in source Serum or data Plasma Estimated >60 ML/MIN No REFERENCE Jun 25 informati RANGE: 2017 8:41 glomerula on in >60 AM r source ML/MIN/1. filtratio data 73 SQUARE n rate METERSIf (GF this patient is -A merican, then multiply theresult by 1.210.
--- OUTSIDE RECORDS SUMMARY | 2017-09-13 18:02 | External Medical Summary Rpt | CCD ---
Demographics Preferred Language Citizen Of [place] Marital Status Unknown Worship Affiliation Unknown Race Unknown Ethnic Group Unknown Author Author , PAPO BARROS Address Unknown Phone Immunization No patient found.
--- OUTSIDE RECORDS SUMMARY | 2017-09-13 18:02 | External Medical Summary Rpt | CCD ---
Author Author , ALEJANDRA BARROS Address Unknown Phone [email or web address] Purpose Continuity of Care Document - 06-25-2017 through 2016 Problems Code Diagnosis DOS Provider Status R78.89 FINDING OF OTH SUBSTANCES, NOT NORMALLY FOUND IN BLOOD S32.020A WEDGE COMPRESSION FRACTURE OF SECOND LUMBAR VERTEBRA, INIT S32.030A WEDGE COMPRESSION FRACTURE OF THIRD LUMBAR VERTEBRA, INIT Z12.5 ENCOUNTER FOR SCREENING FOR MALIGNANT NEOPLASM OF PROSTATE
--- OUTSIDE RECORDS SUMMARY | 2017-09-13 18:02 | External Medical Summary Rpt | CCD ---
Author Author , ALEJANDRA BARROS Address Unknown Phone [email or web address] Purpose Continuity of Care Document - 06-25-2017 through 2016 Problems Code Diagnosis DOS Provider Status R78.89 FINDING OF OTH SUBSTANCES, NOT NORMALLY FOUND IN BLOOD S32.020A WEDGE COMPRESSION FRACTURE OF SECOND LUMBAR VERTEBRA, INIT S32.030A WEDGE COMPRESSION FRACTURE OF THIRD LUMBAR VERTEBRA, INIT Z12.5 ENCOUNTER FOR SCREENING FOR MALIGNANT NEOPLASM OF PROSTATE
--- OUTSIDE RECORDS SUMMARY | 2017-09-13 18:02 | External Medical Summary Rpt | CCD ---
Demographics Preferred Language [place] Marital Status Unknown Hindu Affiliation Unknown Race Unknown Ethnic Group Unknown Author Author , PAPO BARROS Address Unknown Phone Immunization No patient found.
--- OUTSIDE RECORDS SUMMARY | 2017-09-13 18:40 | External Medical Summary Rpt | CCD ---
Author Author , ALEJANDRA BARROS Address Unknown Phone [email or web address] Purpose Continuity of Care Document - 06-25-2017 through 2016 Problems Code Diagnosis DOS Provider Status R78.89 FINDING OF OTH SUBSTANCES, NOT NORMALLY FOUND IN BLOOD S32.020A WEDGE COMPRESSION FRACTURE OF SECOND LUMBAR VERTEBRA, INIT S32.030A WEDGE COMPRESSION FRACTURE OF THIRD LUMBAR VERTEBRA, INIT Z12.5 ENCOUNTER FOR SCREENING FOR MALIGNANT NEOPLASM OF PROSTATE
--- OUTSIDE RECORDS SUMMARY | 2017-09-13 18:40 | External Medical Summary Rpt | CCD ---
Author Author , ALEJANDRA BARROS Address Unknown Phone [email or web address] Purpose Continuity of Care Document - 06-25-2017 through 2016 Problems Code Diagnosis DOS Provider Status R78.89 FINDING OF OTH SUBSTANCES, NOT NORMALLY FOUND IN BLOOD S32.020A WEDGE COMPRESSION FRACTURE OF SECOND LUMBAR VERTEBRA, INIT S32.030A WEDGE COMPRESSION FRACTURE OF THIRD LUMBAR VERTEBRA, INIT Z12.5 ENCOUNTER FOR SCREENING FOR MALIGNANT NEOPLASM OF PROSTATE
--- OUTSIDE RECORDS SUMMARY | 2017-09-13 18:40 | External Medical Summary Rpt ---
Author Author [employer] Jannette, [employer] Organization [employer] Address Unknown Phone Unavailable Results Ammonia [Mass/volume] in Unspecified specimen Observa Value Referen Units Interpr Notes Date tion ce etation Range Ammonia 19 - 54 umoL/L Low No Aug 12 [Mass/vol informati 2016 ume] in on in 10:20 PM Unspecifi source ed data specimen INR in Blood by Coagulation assay Observa Value Referen Units Interpr Notes Date tion ce etation Range IS PATIENT ON ANTICOAGULANTS? N INR in 0.9 - 1.1 No High INDICATIO Aug 12 Blood by informati N 2017 9:20 Coagulati on in PM on assay source INR data RANGETHER APY FOR DVT, PE, ATRIAL FIB; 2.0 - 3.0PROPHY LAXIS FOR VTETHERAP Y FOR MECHANICA L HEART 2.5 - 3.5VALVE; PREVENTIO N OF SYSTEMICE MBOLISM SECONDARY TO AMI Prothromb 9.4 - SECONDS High No Sep 11 in time 11.8 informati 2017 9:20 (PT) in on in PM Platelet source poor data plasma by Coagulati on assay Amylase [Enzymatic activity/volume] in Serum or Plasma Observa Value Referen Units Interpr Notes Date tion ce etation Range Amylase 25 - 115 U/L Low No Sep 11 [Enzymati informati 2017 9:20 c on in PM activity/ source volume] data in Serum or Plasma Lipase [Enzymatic activity/volume] in Serum or Plasma Observa Value Referen Units Interpr Notes Date tion ce etation Range Lipase 73 - 393 U/L Normal No Aug 12 [Enzymati informati 2016 9:20 c on in PM activity/ source volume] data in Serum or Plasma Comprehensive metabolic 2000 panel in Serum or Plasma Observa Value Referen Units Interpr Notes Date tion ce etation Range Albumin/G 1.1 - 1.8 No Low No Aug 12 lobulin informati informati 2016 9:20 [Mass on in on in PM ratio] in source source Serum or data data Plasma Albumin 3.4 - 5.0 gm/dL Low No Oct 12 [Mass/vol informati 2017 9:20 ume] in on in PM Serum or source Plasma data Alkaline 46 - 116 U/L High No Oct 12 phosphata informati 2017 9:20 se on in PM [Enzymati source c data activity/ volume] in Serum or Plasma Bilirubin 0.2 - 1.0 mg/dL High No Oct 12 .total informati 2017 9:20 [Mass/vol on in PM ume] in source Serum or data Plasma Urea 7 - 18 mg/dL Normal No Oct 12 nitrogen informati 2017 9:20 [Mass/vol on in PM ume] in source Serum or data Plasma Calcium 8.5 - mg/dL Normal No Oct 12 [Mass/vol 10.1 informati 2017 9:20 ume] in on in PM Serum or source Plasma data Chloride 98 - 107 mmoL/L Low No Oct 12 [Moles/vo informati 2017 9:20 lume] in on in PM Serum or source Plasma data Carbon 21.0 - mmoL/L Normal No Aug 12 dioxide, 32.0 informati 2017 9:20 total on in PM [Moles/vo source lume] in data Serum or Plasma Creatinin 0.70 - mg/dL Normal No Oct 12 e 1.30 informati 2017 9:20 [Mass/vol on in PM ume] in source Serum or data Plasma Creatinin 50 - 200 ML/MIN Normal No Oct 12 e renal informati 2017 9:20 clearance on in PM source predicted data by Cockcroft -Gault formula Estimated >60 ML/MIN No REFERENCE Oct 12 informati RANGE: 2017 9:20 glomerula on in >60 PM r source ML/MIN/1. filtratio data 73 SQUARE n rate METERSIf (GF this patient is -A merican, then multiply theresult by 1.210. Globulin 1.3 - 3.2 gm/dL High No Oct 12 [Mass/vol informati 2017 9:20 ume] in on in PM Serum source data Glucose 74 - 106 mg/dL Normal No Oct 12 [Mass/vol informati 2017 9:20 ume] in on in PM Serum or source Plasma data Potassium 3.5 - 5.1 mmoL/L Normal POTASSIUM Sep 11March 9:20 [Moles/vo FALSELY PM lume] in ELEVATED Serum or DUE TO Plasma ICTEREMIA Sodium 136 - 145 mmoL/L Low alert Sep 11 [Moles/vo 2016 9:20 lume] in CRITICAL PM Serum or RESULTS Plasma RESU LTS CALLED TO: [facility] 09/11/172143 Jamil,[place] nda Aspartate 15 - 37 U/L High ASY MarchSep 112016 9:20 aminotran FALSELY PM sferase ELEVATED [Enzymati DUE TO c ICTEREMIA activity/ volume] in Serum or Plasma Alanine 12 - 78 U/L Normal No Sep 11 aminotran informati 2016 9:20 sferase on in PM [Enzymati source c data activity/ volume] in Serum or Plasma Protein 6.4 - 8.2 gm/dL No No Sep 11 [Mass/vol informati informati 2016 9:20 ume] in on in on in PM Serum or source source Plasma data data Cardiac enzymes Observa Value Referen Units Interpr Notes Date ti ce etation Range Creatine 0 - 4.0 U/L Normal No Sep 11 kinase.MB informati 2017 9:20 /Creatine on in PM source kinase.to data amy [Ratio] in Serum or Plasma Creatine 0.0 - 3.6 ng/mL High Sep 11 kinase.MB alert 2016 9:20 CRITICAL PM [Mass/vol RESULTS ume] in Serum or RESU Plasma LTS CALLED TO: [facility] 09/11/172142 Jamil,[place] nda Creatine 39 - 308 U/L High No Sep 11 kinase informati 2017 9:20 [Enzymati on in PM c source activity/ data volume] in Serum or Plasma Troponin 0.00 - ng/mL Normal No Sep 11 I.cardiac 0.06 informati 2016 9:20 on in PM [Mass/vol source ume] in data Serum or Plasma CBC W Auto Differential panel in Blood Observa Value Referen Units Interpr Notes Date tion ce etation Range Basophils 0 - 0.2 K/MM3 Normal No Sep 11 informati 2016 8:25 [#/volume on in PM ] in source Blood by data Automated count Basophils 0.1 - 2.0 % Normal No Sep 11 informati 2016 8:25 leukocyte on in PM s in source Blood by data Automated count Eosinophi 0.0 - 0.4 K/mm3 Normal No Aug 12 ls informati 2016 8:25 [#/volume on in PM ] in source Blood by data Automated count Eosinophi 0.1 - % Normal No Sep 11 ls/100 12.0 informati 2016 8:25 leukocyte on in PM s in source Blood by data Automated count Granulocy 1.3 - 8.0 K/mm3 High No Aug 12 soila informati 2016 8:25 [#/volume on in PM ] in source Blood by data Automated count Granulocy 37.0 - % Normal No Sep 11 soila/100 80.0 informati 2016 8:25 leukocyte on in PM s in source Blood by data Automated count Hematocri 42.0 - % Low No Sep 11 t [Volume 52.0 informati 2016 8:25 on in PM Fraction] source of Blood data Hemoglobi 14.1 - g/dL Low No Sep 11 n 18.0 informati 2016 8:25 [Mass/vol on in PM ume] in source Blood data Lymphocyt 0.7 - 4.5 K/mm3 Normal No Sep 11 es informati 2016 8:25 [#/volume on in PM ] in source Unspecifi data ed specimen by Automated count Lymphocyt 10 - 50 % Normal No Sep 11 es informati 2016 8:25 [#/volume on in PM ] in source Unspecifi data ed specimen by Automated count Erythrocy 27 - 31.2 pg High No Sep 11 te mean informati 2016 8:25 corpuscul on in PM ar source hemoglobi data n [Entitic mass] Erythrocy 31.8 - g/dl High No Sep 11 te mean 35.4 informati 2016 8:25 corpuscul on in PM ar source hemoglobi data n concentra tion [Mass/vol ume] by Automated count Erythrocy 82.2 - fl Normal No Sep 11 te mean 97.8 informati 2016 8:25 corpuscul on in PM ar volume source [Entitic data volume] by Automated count Monocytes 0.1 - 1.0 K/mm3 Normal No Sep 11 informati 2016 8:25 [#/volume on in PM ] in source Blood by data Automated count Monocytes 1.7 - 9.3 % Normal No Sep 11 informati 2016 8:25 leukocyte on in PM s in source Blood by data Automated count Platelet 7.4 - fl Normal No Sep 11 mean 10.4 ati 2016 8:25 volume on in PM [Entitic source volume] data in Blood by Automated count Platelets 142 - 424 K/mm3 Normal No Sep 112016 8:25 [#/volume on in PM ] in source Blood data Erythrocy 4.6 - 6.2 M/mm3 Low No Sep 11 soila informati 2016 8:25 [#/volume on in PM ] in source Amniotic data fluid Erythrocy 11.5 - % Normal No Sep 11 te 17.5 informati 2016 8:25 distribut on in PM ion width source [Entitic data volume] by Automated count Leukocyte 4.8 - K/MM3 High No Sep 11 s 10.8 informati 2016 8:25 [#/volume on in PM ] in source Blood data Comprehensive metabolic 2000 panel in Serum or Plasma Observa Value Referen Units Interpr Notes Date tion ce etation Range Albumin/G 1.1 - 1.8 No Low No Jul 28 lobulin informati informati 2016 [Mass on in on in 10:54 AM ratio] in source source Serum or data data Plasma Albumin 3.4 - 5.0 gm/dL Low No Jul 28 [Mass/vol informati 2016 ume] in on in 10:54 AM Serum or source Plasma data Alkaline 46 - 116 U/L High No Jul 28 phosphata 2016 se on in 10:54 AM [Enzymati source c data activity/ volume] in Serum or Plasma Bilirubin 0.2 - 1.0 mg/dL High No Jul 28 .total informati 2016 [Mass/vol on in 10:54 AM ume] in source Serum or data Plasma Urea 7 - 18 mg/dL Normal No Jul 28 nitrogen inform2016 [Mass/vol on in 10:54 AM ume] in [...] mmoL/L Normal No Jul 28 dioxide, 32.0 inform2016 total on in 10:54 AM [Moles/vo source lume] in data Serum or Plasma Creatinin 0.70 - mg/dL Normal No Jul 28 e 1.30 inform2016 [Mass/vol on in 10:54 AM ume] in [...] 3.5 - 5.1 mmoL/L Normal No Jul 282016 [Moles/vo on in 10:54 AM lume] in [...] Normal No Jul 28 ol in LDL informati 2017 on in 10:54 AM [Mass/vol source ume] in data Serum or Plasma by calculati on Triglycer 30 - 200 mg/dL Normal No Jul 28 ashlyn 2016 [Moles/vo on in 10:54 AM lume] in source Serum or data Plasma Cholester 0 - 40 No Normal No Jul 28 ol in informati 2016 VLDL on in on in 10:54 AM [Mass/vol source source ume] in data data Serum or Plasma Prostate specific Ag [Mass/volume] in Cerebral spinal fluid Observa Value Referen Units Interpr Notes Date tion ce etation Range Prostate 0.0 - 4.0 ng/mL Normal No Jul 28 specific 2016 Ag on in 10:54 AM [Mass/vol source [...] % Normal No Jul 28 ls/100 12.0 2016 leukocyte on in 10:54 AM s [...] Normal No Jul 28 t [Volume 52.0 2016 on in 10:54 AM Fraction] source [...] Normal No Jul 28 te mean 35.4 2016 corpuscul on in 10:54 AM ar source hemoglobi data n concentra tion [Mass/vol ume] by Automated count Erythrocy 82.2 - fl Normal No Jul 28 te mean 97.8 2016 corpuscul on in 10:54 AM ar volume source [Entitic data volume] by Automated count Monocytes 0.1 - 1.0 K/mm3 Normal No Jul 282016 [#/volume on in 10:54 AM ] in source Blood by data Automated count Monocytes 1.7 - 9.3 % Normal No Jul 28 /100 2016 leukocyte on in 10:54 AM s in source Blood by data Automated count Platelet 7.4 - fl Low No Jul 28 mean 10.4 2016 volume on in 10:54 AM [Entitic source volume] data in Blood by Automated count Platelets 142 - 424 K/mm3 Normal No Jul 282016 [#/volume on in 10:54 AM ] in source Blood data Erythrocy 4.6 - 6.2 M/mm3 Normal No Jul 28 soila 2016 [#/volume on in 10:54 AM ] in source Amniotic data fluid Erythrocy 11.5 - % Normal No Jul 28 te 17.5 2016 distribut on in 10:54 AM ion width source [Entitic data volume] by Automated count Leukocyte 4.8 - K/MM3 Normal No Jul 28 s 10.8 2016 [#/volume on in 10:54 AM ] [...] Normal No Jun 25 e 1.30 informati 2017 8:41 [Mass/vol on in AM ume] in source Serum or data Plasma Estimated >60 ML/MIN No REFERENCE Jun 25 informati RANGE: 2016 8:41 glomerula on in >60 AM r source ML/MIN/1. filtratio data 73 SQUARE n rate METERSIf (GF this patient is -A merican, then multiply theresult by 1.210.
--- OUTSIDE RECORDS SUMMARY | 2017-09-13 18:40 | External Medical Summary Rpt | CCD ---
Demographics Preferred Language Gibraltarian Marital Status Unknown Nondenominational Affiliation Unknown Race Unknown Ethnic Group Unknown Author Author , PAPO BARROS Address Unknown Phone Immunization No patient found.
--- OUTSIDE RECORDS SUMMARY | 2017-09-13 18:40 | External Medical Summary Rpt ---
[...] Plasma RESU LTS CALLED TO: [facility] 09/11/172143 Jamil,[place] nda Aspartate 15 - 37 U/L High [...] RESU Plasma LTS CALLED TO: [facility] 09/11/172142 Jamil,[place] nda Creatine 39 - 308 U/L High [...]
--- OUTSIDE RECORDS SUMMARY | 2017-09-13 18:40 | External Medical Summary Rpt | CCD ---
Demographics Preferred Language Beninese Marital Status Unknown Pentecostal Affiliation Unknown Race Unknown Ethnic Group Unknown Author Author , PAPO BARROS Address Unknown Phone Immunization No patient found.
[2017-09-13 20:00] VITALS: BP 137/61
[2017-09-14 04:03] VITALS: BP 141/78
[2017-09-14 07:58] VITALS: BP 159/78
[2017-09-14 09:03] VITALS: BP 159/78
--- NOTE | 2017-09-14 10:38 | ACUTE CARE PROGRESS NOTE (QUA) ---
Progress Notes Subjective Date 09/14/17 Time 1036 Note Patient feels a little better today, had a bowel movement yesterday. Objective Findings Vital Signs Date Time Temp Pulse Resp B/P Pulse O2 O2 Flow FiO2 Ox Delivery Rate 09/14 0903 97.3 92 20 159/78 97 09/14 0758 97.3 92 20 159/78 97 ROOM AIR 09/14 0403 98.2 88 18 141/78 96 ROOM AIR 09/13 2225 97.2 96 20 137/61 98 09/13 2000 97.2 96 20 137/61 98 ROOM AIR 09/13 1552 97.5 89 20 154/89 97 ROOM AIR 09/13 1041 97.4 95 20 143/92 96 I&O Past 24 Hrs-ending at 0700 09/14 0700 Intake Total 3208 Output Total 1100 Balance 2108 Last VS-Temp:97.3 B/P:159/78 Pulse:92 Resp:20 SaO2:97 ROOM AIR Last weight lbs:240 oz:0 K.864 Method:Bed Scales Exam General appearance: alert, no acute distress Cardiovascular: regular rate & rhythm Respiratory: clear to auscultation ABD: normal bowel sounds, soft, no tenderness Extremities: edema (1+ bilat legs) Assessment/Plan Problem List 1. Urinary tract infection Status: Acute 2. Hyponatremia Status: Acute 3. Abnormal CT scan, gallbladder Status: Acute 4. Constipation Status: Acute 5. Compression fx, lumbar spine 6. Abnormal LFTs (liver function tests) Status: Chronic 7. 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 Hypertension Status: Chronic 9. Anemia Status: Acute This inpt stay is expected to cross 2 MNs from start of care Yes Comments: Improving, saline lock after Rally Pack today, check labs tomorrow, possible discharge tomorrow. at 1038
[2017-09-14 15:37] VITALS: BP 142/82
[2017-09-14 19:20] VITALS: BP 108/58
[2017-09-14 19:54] VITALS: BP 108/58
[2017-09-15 04:22] VITALS: BP 136/65
[2017-09-15 07:24] LABS: LYMPH # 1.4 K/mm3 (0.7-4.5)
[2017-09-15 07:45] VITALS: BP 160/91
--- NOTE | 2017-09-15 08:17 | ACUTE CARE PROGRESS NOTE (QUA) ---
Progress Notes Subjective Date 09/15/17 Time 0817 Assessment/Plan Problem List 1. Urinary tract infection Status: Acute 2. Hyponatremia Status: Acute 3. Abnormal CT scan, gallbladder Status: Acute 4. Constipation Status: Acute 5. Compression fx, lumbar spine 6. Abnormal LFTs (liver function tests) Status: Chronic 7. 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 Hypertension Status: Chronic 9. Anemia Status: Acute This inpt stay is expected to cross 2 MNs from start of care Yes Antibiotic Stewardship (2) Current Culture Results Microbiology 09/11 2331 URINE CC: Urine Culture - COMP Infxn that will respond? Yes (NO GROWTH IN URINE CULTURE) Right drug,dose,and route? Yes More targeted antbx? No at 0817
--- NOTE | 2017-09-15 08:56 | ACUTE CARE PROGRESS NOTE (QUA) ---
See Addendum Progress Notes Subjective Date 09/15/17 Time 0854 Note Patient feels better today, wants to go home. Objective Findings Laboratory Tests 09/15/17 0635: Sodium 124 L, Potassium 4.3, Chloride 93 L, Carbon Dioxide 29, BUN 8, Creatinine 0.8, Estimated Creat Clear 123, Estimated GFR (MDRD) 94, Glucose 97, Calcium 8.4 L, WBC 11.1 H, RBC 3.40 L, Hgb 11.0 L, Hct 32.2 L, MCV 94.7, RDW 14.3, Plt Count 203, MPV 7.2 L, Gran % 77.9, Gran # 8.7 H, Lymphocytes % 13.0, Monocytes % 6.8, Eosinophils % 2.2, Basophils % 0.2, Lymphocytes # 1.4, Monocytes # 0.8, Eosinophils # 0.2, Basophils # 0.0, PUBS MCHC 34.1, MCH 32.3 H Vital Signs Date Time Temp Pulse Resp B/P Pulse O2 O2 Flow FiO2 Ox Delivery Rate 09/15 0745 98.1 96 20 160/91 97 ROOM AIR 09/15 0422 98.2 94 16 136/65 97 ROOM AIR 09/14 1954 98.7 97 20 108/58 97 ROOM AIR 09/14 1920 98.7 97 20 108/58 97 09/14 1537 97.4 104 20 142/82 97 ROOM AIR 09/14 0903 97.3 92 20 159/78 97 I&O Past 24 Hrs-ending at 0700 09/15 0700 Intake Total 1778 Output Total 400 Balance 1378 Last VS-Temp:98.1 B/P:160/91 Pulse:96 Resp:20 SaO2:97 ROOM AIR Last weight lbs:240 oz:0 K.864 Method:Bed Scales Exam General appearance: alert, awake, no acute distress Cardiovascular: regular rate & rhythm Respiratory: clear to auscultation Assessment/Plan Problem List 1. Urinary tract infection Status: Acute 2. Hyponatremia Status: Acute 3. Abnormal CT scan, gallbladder Status: Acute 4. Constipation Status: Acute 5. Compression fx, lumbar spine 6. Abnormal LFTs (liver function tests) Status: Chronic 7. 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 Hypertension Status: Chronic 9. Anemia Status: Acute This inpt stay is expected to cross 2 MNs from start of care Yes Comments: Plan discharge home today with oral antibiotics. No alcohol or narcotic pain pill use, f/u in office 4 days. at 0880
[2017-09-15] MEDS ORDERED: LISINOPRIL40 MG PO (08:58)
[2017-09-15] MEDS ORDERED: CEFUROXIME AXE500 MG PO (08:58)
[2017-09-15 09:38] VITALS: BP 160/91
--- NOTE | 2017-09-18 09:21 | DISCHARGE SUMMARY STANDARD ---
Discharge Summary ([facility]2) Date of admission: 09/12/17 Date of discharge: 09/15/17 Problem List: 1. Urinary tract infection 2. Hyponatremia 3. Abnormal CT scan, gallbladder 4. Constipation 5. Compression fx, lumbar spine 6. 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 Hypertension 9. Anemia History of present illness: Mr. Yo is a 77-year-old male with a recent history of a back fracture. He had been on Lortab but had stopped this due to the side effects of vomiting and constipation. According to his son, his had been giving him pain medicine every 6 hours the week prior to admission because she thought it was helping him. He began vomiting again and had not had a bowel movement in 10 days. His son stated he had had altered mental status for a few days and was talking out of his head the night before admission. He was able to walk into the emergency room but was very confused. His sodium was 110 after evaluation and his ammonia level was low. His liver function tests were elevated but he has a history of hepatitis in his youth. He was admitted for further evaluation and treatment. Exam on admission: General appearance: alert, awake, no acute distress, still groggy but able to answer questions Eyes: EOM's w/normal ROM, PERRLA ENT: nose normal, pharynx normal, dry mucous membranes Neck: non-tender, full range of motion, supple Cardiovascular: regular rate & rhythm Respiratory: clear to auscultation ABD: non-distended, normal bowel sounds, no rebound, soft, no tenderness, no guarding Extremities: no peripheral edema Musculoskeletal: equal muscle strength, motor intact, sensation intact Skin: normal color Neuro: senior hadoop developer II-XII nml as tested, normal mood/affect, speech clear, able to answer questions today Hospital Course: The pt was started on a 3% saline infusion. He had a CT of the abdomen and pelvis showing cirrhosis and portal venous HTN with ascites as well as a distended gallbladder. A RUQ U/S showed only a distended gallbladder, no stones. He had a UTI and was started on rocephin. He was also started on an alcohol withdrawal protocol and medication for constipation. Pain medication was held. The patient improved and his saline infusion was discontinued. He had a BM and began feeling much better. He was stable to be discharged home on cefuoxime for his UTI. He was not to drink alcohol or take any more pain medication. Discharge medications: Stop taking the following medications: POTASSIUM CHL (Potassium Chloride) 10 MEQ CAPSULE.ER ORAL DAILY LISINOPRIL/HYDROCHLOROTHIAZIDE (Lisinopril-Hctz 20-12.5 MG Tab) 1 EACH TABLET ORAL DAILY Continue taking these medications: OXYBUTYNIN CHLORIDE (Oxybutynin 5MG Tab) 5 MG TABLET 5 MILLIGRAM ORAL TWICE A DAY Vitamin A Acetate (Vitamin A) 10,000 UNIT TAB.SUBL 10,000 UNIT ORAL DAILY Start taking the following new medications: Lisinopril (Lisinopril 40MG) 40 MG TABLET 40 MILLIGRAM ORAL DAILY Qty = 30 Refills = 5 Cefuroxime Axetil (Cefuroxime) 500 MG TABLET 500 MILLIGRAM ORAL TWICE A DAY Qty = 14 No Refills Disposition: F/U with: José Luis Mcclellan MD Follow up: 4 DAYS Activity: Cont Current activity Diet: Continue same diet Discharge to: HOME Agency needed? N ([facility]) Problem List: 1. Urinary tract infection 2. Hyponatremia 3. Abnormal CT scan, gallbladder 4. Constipation 5. Compression fx, lumbar spine 6. 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 Hypertension 9. Anemia 10. Debility 11. Muscle weakness 12. Low back pain (José Luis Mcclellan MD) at 0921
== END 2017-09-15 10:15 | disposition home or self-care (01) | DRG 690 ==
LOC: ER 19:57 → 2ND 23:12 → ER 23:12 → 2ND 09-12
PROVIDERS: Emergency Medicine; Family Medicine
DX: N39.0 Urinary tract infection, site not specified (principal); E87.1 Hypo-osmolality and hyponatremia; K70.31 Alcoholic cirrhosis of liver with ascites; D64.9 Anemia, unspecified; M48.56XA Collapsed vertebra, not elsewhere classified, lumbar region, initial encounter for fracture; I10 Essential (primary) hypertension; F10.10 Alcohol abuse, uncomplicated

== ENCOUNTER → 2017-09-19 | Outpatient (CLI) | payer MEDICARE ==
[~2017-09-19] MED LIST changes: +CEFUROXIME AXE500 MG PO; +LISINOPRIL-HYDR1 TA1 PO; +LISINOPRIL40 MG PO; +MICRO-K 10 MEQ10 MEQ PO; +OXYBUTYNIN5 MG PO; +VITAMIN A10000 UNI2 PO
[2017-09-19 11:37] LABS: HEMOGLOBIN 11.1 g/dL (14.1-18.0); LYMPH # 1.2 K/mm3 (0.7-4.5); LYMPH % 15.4 % (10-50)
[2017-09-19 11:53] LABS: BUN 5 mg/dL (7-18); GFR (ESTIMATED) 110 ML/MIN (>60)
--- NOTE | 2017-09-19 11:59 | RADIOLOGY REPORT PS360 ---
EXAM: LUMBAR SPINE 5 VIEWS HISTORY: HEALING OF COMPRESSION FX OF LUMBOSACRAL SPINE ORDERING PHYSICIAN: José Luis Mcclellan MD PATIENT AGE: 77 years COMPARISON: 08/13/[address] scan of 09/11/2017 FINDINGS: There is normal alignment. 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 Compression fractures is present at the L2 level. The compression changes have developed since the previous exam of 08/13/2017 but are unchanged from 09/11/2017. The compression fracture at L2 shows loss of height centrally of greater than 50% loss of height anteriorly of at least 30%. Mild acute compression fracture also noted at L5 5 with loss of height centrally at 50%. There is depression of the superior endplate with concavity involving the superior endplate as seen on the CT scan. This may have slightly increased compared to the plain film of 08/13/2017. IMPRESSION: 1. Acute endplate compression fractures at L2 and L5 which has shown some increase in compression deformity compared to the previous study of 08/13/2017
== END ==
LOC: LAB 10:50
PROVIDERS: Family Medicine
DX: N39.0 Urinary tract infection, site not specified (principal); E87.1 Hypo-osmolality and hyponatremia; K74.69 Other cirrhosis of liver; S32.000D Wedge compression fracture of unspecified lumbar vertebra, subsequent encounter for fracture with routine healing

== ENCOUNTER → 2017-09-22 | Outpatient (CLI) | payer MEDICARE ==
[2017-09-22 13:44] LABS: URINE BILIRUBIN - DIPSTICK NEGATIVE (NEG); URINE BLOOD NEGATIVE (NEG)
[2017-09-22 14:13] LABS: URINE SQUAMOUS CELLS OCC #/hpf (OCC)
== END ==
LOC: LAB 12:37
PROVIDERS: Family Medicine
DX: N39.0 Urinary tract infection, site not specified (principal); E87.1 Hypo-osmolality and hyponatremia; K74.69 Other cirrhosis of liver; S32.000D Wedge compression fracture of unspecified lumbar vertebra, subsequent encounter for fracture with routine healing